=== PATIENT | female | born 1930 | race Caucasian/White ===

== ENCOUNTER 2017-02-25 12:25 | Emergency (ER) | payer MEDICARE ==
[~2017-02-25] VITALS: Ht 149.9 cm; Wt 69.9 kg
[~2017-02-25 12:25] MED LIST: BENADRYL 25MG C25 MG PO; DHEA PO; ELIMITE 5%60 GM/TUB1 TP; GOLYTELY 40004000 ML PO; LISINOPRIL2.5 MG NG; OMNIPRED 5 ML5 ML OP; TIMOPTIC OCUDO OP; VITAMIN D5000 IU PO; [UNRECOGNIZED DRUG - OTHER]
[2017-02-25 13:03] LABS: URINE BLOOD 3+ (NEG)
[2017-02-25 13:04] LABS: URINE BILIRUBIN - DIPSTICK NEGATIVE (NEG)
--- NOTE | 2017-02-25 13:16 | Emergency Room Report ---
History of Present Illness Time Seen by [id number] Presenting Problem in Triage Pt arrived:Walked Presenting Problem:ATE OUT THURSDAY, THURSDAY MORNING VOMITING . Onset of symptoms date/time:/ or onset unknown for:MEDICAL HX UNKNOWN Treatment Prior to Arrival: [employer] Provided by: Sepsis Risk Assessment: Temp: 98.7 B/P: MAP: Pulse: 80 Resp: 18 Recent fever? N Clinical Suspician of Infection? N Mental Status: 1 - Regular (Normal Baseline) Sepsis Risk:Low Sepsis Risk Have you (or family members/close friends) recently traveled outside the [place]? N If Yes, where/when: Have you had exposure to infectious disease within the past month? TB? Other? Specify: Patient has abdominal distention and vomiting for the past three days; ate cream donut three days ago and has been vomiting ever since; states " I can't eat". No blood from above or below; no hx diverticulitis; no diarrhea; no fever or urinary sx; no back pain. ALLERGIES Coded Allergies: NO KNOWN ALLERGIES (02/25/17) Home Medications Active Scripts Permethrin (Elimite 5% Cream; 60GM Tube) 60 GM TP ONCE #1 TUBE Ref 1 Prov: 03/21/16 HYDROXYZINE HCL (Hydroxyzine Hydrochloride) 1 POW NA Q4HP PRN itching #100 POW Prov: 03/21/16 PEG 3350/NA SULF,BICARB,CL/KCL (Golytely Solution) 4,000 ML PO ONCE #1 Prov: 06/09/12 Reported Medications Timolol Maleate (Timoptic Ocudose 0.2 Ml) 1 DROP OP BID MISCELLANEOUS (UNKNOWN MEDICATION) 1 DROP PO BID MISCELLANEOUS (UNKNOWN MEDICATION) 1 DROP OP QHS Dehydroepiandrosterone, Micr (Dhea) 5 MG PO QHS Cholecalciferol (Vitamin D) 5,000 IUNITS PO QHS History Medical History General Angina: No MT: No Hypertension? Yes Hyperlipidemia? Yes COPD? No Asthma? No Thyroid Problems? Yes CVA? No Seizures? No Diabetes? No GB Disease: No Glaucoma? Yes MRSA? No TB? No Cancer? 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 Social History Smoking Hx Smoker: Never Smoker Tobacco: No Type N/A Are you/the child exposed to second-hand smoke: No Alcohol Alcohol: No Review of Systems All Other Systems Reviewed and Negative Gastrointestinal see HPI Physical Exam Vital Signs Vital Signs Date Time Temp Pulse Resp B/P Pulse O2 O2 Flow FiO2 Ox Delivery Rate 02/25 1457 84 18 149/75 97 02/25 1349 82 18 137/83 97 02/25 1231 98.7 80 18 96 General Appearance normal appearance, WD/WN, no apparent distress Eye Exam - bilateral eye normal exam, bilateral eye PERRL, bilateral eye EOMI Neck normal inspection, non-tender, supple, full range of motion Respiratory Status Yes: trachea midline, chest symmetrical, non tender chest. No: respiratory distress, tender on palpation, use of accessory muscles, pain on inspiration, pain on expiration, productive cough, non productive cough. Lung Sounds bilateral: normal breath sounds, lungs clear. Cardiovascular normal exam, regular rate/rhythm, no peripheral edema, no gallop, no JVD, no murmur, no rub, normal peripheral pulses Gastrointestinal normal bowel sounds, soft, no organomegaly, no pulsatile mass, no guarding, no rebound, tenderness (diffusely tender no mrg) Extremities normal range of motion Neurologic alert, normal exam, no motor/sensory deficits, oriented x 3 Skin intact, normal color, warm/dry Medical Decision Making LABS/Meds/Orders Pt receiving controlled substance in ED? No Avinash was queried for this patient? No Results/Orders Laboratory Tests 02/25/17 1425: Sodium 138, Potassium 3.7, Chloride 104, Carbon Dioxide 30, BUN 10, Creatinine 0.7, Estimated Creat Clear 66, Estimated GFR (MDRD) 80, Glucose 125 H, Calcium 9.0, Total Bilirubin 0.5, AST 29, ALT 57, Alkaline Phosphatase 82, Total Protein 7.9, Albumin 3.2 L, Globulin 4.7 H, Albumin/Globulin Ratio 0.7 L, WBC 8.7, RBC 4.35, Hgb 13.4, Hct 41.6, MCV 95.7, RDW 14.1, Plt Count 247, MPV 7.7, Gran % 66.5, Gran # 5.8, Lymphocytes % 23.6, Monocytes % 7.6, Eosinophils % 1.7, Basophils % 0.6, Lymphocytes # 2.1, Monocytes # 0.7, Eosinophils # 0.2, Basophils # 0.1, PUBS MCHC 32.1, MCH 30.7 02/25/17 1247: Stl Cyclospora species NOT DETECTED, Stool Rotavirus (PCR) NOT DETECTED, Stool Campylobacter PCR DETECTED H, Stool Giardia Lamblia PCR NOT DETECTED, Stl Norovirus GI/GII PCR NOT DETECTED, Adenovirus (PCR) NOT DETECTED, C. difficile Tox (PCR) NOT DETECTED, E. coli (PCR) NOT DETECTED, Yersinia (PCR) NOT DETECTED, Urine Color OTHER, Urine Appearance TURBID, Urine pH 6.0, Ur Specific [place] >= 1.030, Urine Protein 2+ H, Urine Ketones TRACE H, Urine Blood 3+ H, Urine Nitrate POSITIVE H, Urine Bilirubin NEGATIVE, Urine Urobilinogen 2.0, Ur Leukocyte Esterase 2+ H, Urine RBC 5-10, Urine WBC 5-10, Ur Squamous Epith Cells 5-10, Urine Bacteria 4+, Urine Mucus 1+, Urine Glucose NEGATIVE Current Medication Orders Sig/Ahsan Start time Last Medication Dose Route Stop Time Status Admin Sodium Chloride 10 ML PRN PRN 02/25 1430 AC IV 02/26 1421 Orders Procedure Date/time Status DIET-NOTHING BY MOUTH 02/[address] ABD/PELVIS REQ 02/25 1421 Complete IV SALINE LOCK 02/25 1421 Active CBC WITH AUTO DIFF 02/25 1421 Complete CHEM 12 PROFILE 02/25 1421 Complete DIARRHEA PANEL, PCR 02/25 1301 Complete URINALYSIS/COMPLETE 02/25 1249 Complete CULTURE, URINE 02/25 1247 Active XRAY/CT/US XRAY/CT/US CT interpretation by reviewed by me Time results known: 1519 CT Results normal/NAD Departure Departure Time of Disposition 1519 Disposition DC Home or Self Care(routine) Clinical Impression Primary Impression: Campylobacter gastroenteritis Secondary Impressions: Abdominal cramps UTI (urinary tract infection) Qualifiers: Urinary tract infection type: acute cystitis Hematuria presence: without hematuria Qualified Code: N30.00 - Acute cystitis without hematuria Condition STABLE Patient Instructions DI for Food Poisoning Additional Instructions Rx Ciprofloxacin to cover diarrhea and UTI, see your family doctor in two to five days for follow up, clear liquids, advance as tolerated. This is an infection in your stool that will get much worse if you use Imodium; do NOT take Imodium for this illness. Discharge Counseling Counseled pt/family regarding diagnosis, test results, medications/RX, home care Prescriptions Current Visit Scripts Ciprofloxacin HCl (Cipro 500MG TAB) 500 MG PO BID #20 TAB Ondansetron (Zofran 4MG Odt) 4 MG PO Q6HP PRN NAUSEA AND VOMITING #6 ODT ED Critical Care Critical Care No at [id number]
[2017-02-25 14:35] LABS: HEMOGLOBIN 13.4 g/dL (12.2-16.2); LYMPH # 2.1 K/mm3 (0.7-4.5); LYMPH % 23.6 % (10-50.0)
[2017-02-25 14:51] LABS: AEROMONAS NOT DETECTED (NOT DETECTE); ASTROVIRUS NOT DETECTED (NOT DETECTE); CYCLOSPORA CAYETANENSIS NOT DETECTED (NOT DETECTE); E COLI O157 NOT DETECTED (NOT DETECTE); ENTEROAGGREGATIVE E COLI NOT DETECTED (NOT DETECTE); ENTEROPATHOGENIC E COLI NOT DETECTED (NOT DETECTE); ENTEROTOXIGENIC E COLI NOT DETECTED (NOT DETECTE); NOROVIRUS NOT DETECTED (NOT DETECTE); SAPOVIRUS NOT DETECTED (NOT DETECTE); SHIGA-LIKE TOXIN PROD. E COLI NOT DETECTED (NOT DETECTE); SHIGELLA/ENTEROINVASIVE E COLI NOT DETECTED (NOT DETECTE); VIBRIO CHOLERAE NOT DETECTED (NOT DETECTE)
[2017-02-25] MEDS ORDERED: CIPRO 500MG TA500 MG PO (15:13)
[2017-02-25] MEDS ORDERED: ZOFRAN ODT4 MG PO (15:13)
--- NOTE | 2017-02-25 15:17 | RADIOLOGY REPORT PS360 ---
CT ABD PELVIS W/O CONTRAST CLINICAL INDICATION: Abdominal pain with vomiting VOMITING ORDERING PHYSICIAN: Ambar Jarvis MD PATIENT AGE: 86 years COMPARISON: None TECHNIQUE: Axial images obtained with sagittal and coronal reformats. PROCEDURE: Oral Contrast: None IV Contrast: None . FINDINGS: The lung bases are clear. The liver, gallbladder, pancreas, and adrenal glands have an unremarkable unenhanced CT appearance. 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 There is a 3 cm cyst overlying the lower pole the right kidney and a 2 cm cyst overlying the mid aspect of the left kidney. No hydronephrosis or obstructing ureteral calculi. There is a infra umbilical abdominal wall hernia measuring 2.6 cm in width containing fat which is extruded into the anterior abdominal wall in the left paracentral region. Unremarkable appendix. There is diverticulosis without evidence of diverticulitis of the sigmoid:. There is moderate wedging of L1 anteriorly with loss of height anteriorly of greater than 50% probably old. IMPRESSION: 1. No acute intra-abdominal or pelvic pathology. 2. Bilateral renal cysts. 3. Infraumbilical abdominal wall hernia containing fat.
[2017-02-25 15:44] VITALS: BP 136/79
--- OUTSIDE RECORDS SUMMARY | 2017-03-03 06:13 | External Medical Summary Rpt ---
Demographics Preferred Language [place] Marital Status Unknown Judaism Affiliation Unknown Race Unknown Ethnic Group Unknown Author Author , Organization [employer] Address Unknown Phone Unavailable Purpose Continuity of Care Document - through 2016 Immunization No patient found.
--- OUTSIDE RECORDS SUMMARY | 2017-03-03 06:13 | External Medical Summary Rpt ---
Author Author [employer] Organization [employer] Address Unknown Phone Unavailable Purpose Continuity of Care Document - through 2016
--- OUTSIDE RECORDS SUMMARY | 2017-03-03 06:13 | External Medical Summary Rpt ---
Author Author [employer], [employer] Organization [employer] Address Unknown Phone Unavailable Results Comprehensive metabolic 2000 panel in Serum or Plasma Observa Value Referen Units Interpr Notes Date tion ce etation Range Albumin/G 1.1 - 1.8 No Low No February 25 lobulin informati informati 2016 2:25 [Mass on in on in PM ratio] in source source Serum or data data Plasma Albumin 3.4 - 5.0 gm/dL Low No February 25 [Mass/vol informati 2016 2:25 ume] in on in PM Serum or source Plasma data Alkaline 46 - 116 U/L Normal No February 25 phosphata informati 2016 2:25 se on in PM [Enzymati source c data activity/ volume] in Serum or Plasma Bilirubin 0.2 - 1.0 mg/dL Normal No February 25 .total informati 2016 2:25 [Mass/vol on in PM ume] in source Serum or data Plasma Urea 7 - 18 mg/dL Normal No February 25 nitrogen informati 2016 2:25 [Mass/vol on in PM ume] in source Serum or data Plasma Calcium 8.5 - mg/dL Normal No February 25 [Mass/vol 10.1 informati 2016 2:25 ume] in on in PM Serum or source Plasma data Chloride 98 - 107 mmoL/L Normal No February 25 [Moles/vo informati 2016 2:25 lume] in on in PM Serum or source Plasma data Carbon 21.0 - mmoL/L Normal No February 25 dioxide, 32.0 informati 2017 2:25 total on in PM [Moles/vo source lume] in data Serum or Plasma Creatinin 0.55 - mg/dL Normal No February 25 e 1.02 informati 2017 2:25 [Mass/vol on in PM ume] in source Serum or data Plasma Creatinin 50 - 200 ML/MIN Normal No February 25 e renal informati 2016 2:25 clearance on in PM source predicted data by Cockcroft -Gault formula Estimated 59- ML/MIN No REFERENCE February 25 informati RANGE: 2017 2:25 glomerula on in >60 PM r source ML/MIN/1. filtratio data 73 SQUARE n rate METERSIf (GF this patient is -A merican, then multiply theresult by 1.210. Globulin 1.3 - 3.2 gm/dL High No February 25 [Mass/vol informati 2016 2:25 ume] in on in PM Serum source data Glucose 74 - 106 mg/dL High No February 25 [Mass/vol informati 2016 2:25 ume] in on in PM Serum or source Plasma data Potassium 3.5 - 5.1 mmoL/L Normal No February 252016 2:25 [Moles/vo on in PM lume] in source Serum or data Plasma Sodium 136 - 145 mmoL/L Normal No February 25 [Moles/vo 2016 2:25 lume] in on in PM Serum or source Plasma data Aspartate 15 - 37 U/L Normal No February 252016 2:25 aminotran on in PM sferase source [Enzymati data c activity/ volume] in Serum or Plasma Alanine 12 - 78 U/L Normal No February 25 aminotran 2016 2:25 sferase on in PM [Enzymati source c data activity/ volume] in Serum or Plasma Protein 6.4 - 8.2 gm/dL Normal No February 25 [Mass/vol informati 2016 2:25 ume] in on in PM Serum or source Plasma data CBC W Auto Differential panel in Blood Observa Value Referen Units Interpr Notes Date tion ce etation Range Basophils 0 - 0.2 K/MM3 Normal No February 25 inform2016 2:25 [#/volume on in PM ] in source Blood by data Automated count Basophils 0.1 - 2.0 % Normal No February 25 informati 2016 2:25 leukocyte on in PM s in source Blood by data Automated count Eosinophi 0.0 - 0.4 K/mm3 Normal No February 25 ls informati 2016 2:25 [#/volume on in PM ] in source Blood by data Automated count Eosinophi 0.1 - % Normal No February 25 ls/100 12.0 informati 2016 2:25 leukocyte on in PM s in source Blood by data Automated count Granulocy 1.8 - 7.8 K/mm3 Normal No February 25 vivienne informati 2017 2:25 [#/volume on in PM ] in source Blood by data Automated count Granulocy 37.0 - % Normal No February 25 vivienne/100 80.0 informati 2016 2:25 leukocyte on in PM s in source Blood by data Automated count Hematocri 37.0 - % Normal No February 25 t [Volume 47.0 informati 2016 2:25 on in PM Fraction] source of Blood data Hemoglobi 12.2 - g/dL Normal No February 25 n 16.2 informati 2016 2:25 [Mass/vol on in PM ume] in source Blood data Lymphocyt 0.7 - 4.5 K/mm3 Normal No February 25 es informati 2016 2:25 [#/volume on in PM ] in source Unspecifi data ed specimen by Automated count Lymphocyt 10 - 50.0 % Normal No February 25 es informati 2016 2:25 [#/volume on in PM ] in source Unspecifi data ed specimen by Automated count Erythrocy 27 - 31.2 pg Normal No February 25 te mean informati 2016 2:25 corpuscul on in PM ar source hemoglobi data n [Entitic mass] Erythrocy 31.8 - g/dl Normal No February 25 te mean 35.4 informati 2016 2:25 corpuscul on in PM ar source hemoglobi data n concentra tion [Mass/vol ume] by Automated count Erythrocy 82.2 - fl Normal No February 25 te mean 97.8 informati 2016 2:25 corpuscul on in PM ar volume source [Entitic data volume] by Automated count Monocytes 0.1 - 1.0 K/mm3 Normal No February 25 informati 2016 2:25 [#/volume on in PM ] in source Blood by data Automated count Monocytes 1.7 - 9.3 % Normal No February 25 informati 2016 2:25 leukocyte on in PM s in source Blood by data Automated count Platelet 7.4 - fl Normal No February 25 mean 10.4 informati 2016 2:25 volume on in PM [Entitic source volume] data in Blood by Automated count Platelets 142 - 424 K/mm3 Normal No February 25 informati 2016 2:25 [#/volume on in PM ] in source Blood data Erythrocy 4.2 - 5.4 M/mm3 Normal No February 25 vivienne informati 2016 2:25 [#/volume on in PM ] in source Amniotic data fluid Erythrocy 11.5 - % Normal No February 25 te 17.5 ati 2016 2:25 distribut on in PM ion width source [Entitic data volume] by Automated count Leukocyte 4.8 - K/MM3 Normal No February 25 s 10.8 informati 2016 2:25 [#/volume on in PM ] in source Blood data DIARRHEA PANEL,PCR Observa Value Referen Units Interpr Notes Date tion ce etation Range Adenovi NOT NOT No No No February 25 karely DETECTE DETECTE informa informa informa 2016 40+41 D tion in tion in tion in 12:47 Ag source source source PM [Presen data data data ce] in Stool Aeromon NOT NOT No No No February 25 as DETECTE DETECTE informa informa informa 2016 salmoni D tion in tion in tion in 12:47 aydin source source source PM [Presen data data data ce] in Unspeci fied specime n Astrovi NOT NOT No No No February 25 karely DETECTE DETECTE informa informa informa 2016 [Presen D tion in tion in tion in 12:47 ce] in source source source PM Stool data data data by Electro n microsc opy Campylo DETECTE NOT No Abnorma No February 25 bacter D DETECTE informa l informa 2016 sp Ab tion in tion in 12:47 [Presen source source PM ce] in data data Serum Clostri NOT NOT No No No February 25 dium DETECTE DETECTE informa informa informa 2017 diffici D tion in tion in tion in 12:47 le source source source PM toxin data data data A+B [Presen ce] in Stool Cryptos NOT NOT No No No February 25 poridiu DETECTE DETECTE informa informa informa 2016 m sp Ag D tion in tion in tion in 12:47 source source source PM [Presen data data data ce] in Unspeci fied specime n Cyclosp NOT NOT No No No February 25 ora DETECTE DETECTE informa informa informa 2017 cayetan D tion in tion in tion in 12:47 melissa source source source PM [Presen data data data ce] in Unspeci fied specime n Escheri NOT NOT No No No February 25 mariam DETECTE DETECTE informa informa informa 2017 coli D tion in tion in tion in 12:47 [Presen source source source PM ce] in data data data Unspeci fied specime n by Culture FDA method Escheri NOT NOT No No No February 25 mariam DETECTE DETECTE informa informa informa 2017 coli D tion in tion in tion in 12:47 [Presen source source source PM ce] in data data data Unspeci fied specime n by Culture FDA method Escheri NOT NOT No No No February 25 mariam DETECTE DETECTE informa informa informa 2017 coli D tion in tion in tion in 12:47 Shiga-l source source source PM diya data data data toxin 1 assa Escheri NOT NOT No No No February 25 mariam DETECTE DETECTE informa informa informa 2017 coli D tion in tion in tion in 12:47 [id number] source source source PM data data data [Presen ce] in Stool by Organis m specifi c culture Entamoe NOT NOT No No No February 25 ba DETECTE DETECTE informa informa informa 2017 histoly D tion in tion in tion in 12:47 ruben source source source PM [Presen data data data ce] in Stool by Trichro me stain Giardia NOT NOT No No No February 25 DETECTE DETECTE informa informa informa 2017 lamblia D tion in tion in tion in 12:47 Ag source source source PM [Presen data data data ce] in Stool Norovir NOT NOT No No No February 25 us Ag DETECTE DETECTE informa informa informa 2016 [Presen D tion in tion in tion in 12:47 ce] in source source source PM Stool data data data Stool NOT NOT No No No February 25 Plesiom DETECTE DETECTE informa informa informa 2017 onas D tion in tion in tion in 12:47 shigell source source source PM oides data data data DNA detec Rotavir NOT NOT No No No February 25 us RNA DETECTE DETECTE informa informa informa 2017 detecti D tion in tion in tion in 12:47 on by source source source PM probe data data data and tar Salmone NOT NOT No No No February 25 lla sp DETECTE DETECTE informa informa informa 2017 DNA D tion in tion in tion in 12:47 [Identi source source source PM fier] data data data in Unspeci fied specime n by Probe & target amplifi cation method Caliciv NOT NOT No No No February 25 irus DETECTE DETECTE informa informa informa 2016 [Identi D tion in tion in tion in 12:47 fier] source source source PM in data data data Stool by Electro n microsc opy Escheri NOT NOT No No No February 25 mariam DETECTE DETECTE informa informa informa 2017 coli D tion in tion in tion in 12:47 [Presen source source source PM ce] in data data data Unspeci fied specime n by Culture FDA method Escheri NOT NOT No No No February 25 mariam DETECTE DETECTE informa informa informa 2017 coli D tion in tion in tion in 12:47 SXT source source source PM gene+H7 data data data gene [Identi fier] in Unspeci fied specime n by Probe & target amplifi cation method Vibrio NOT NOT No No No February 25 cholera DETECTE DETECTE informa informa informa 2017 e DNA D tion in tion in tion in 12:47 [Presen source source source PM ce] in data data data Unspeci fied specime n by Probe & target amplifi cation method Vibrio NOT NOT No No No February 25 sp DNA DETECTE DETECTE informa informa informa 2016 [Identi D tion in tion in tion in 12:47 fier] source source source PM in data data data Unspeci fied specime n by Probe & target amplifi cation method Vibrio NOT NOT No No No February 25 sp DETECTE DETECTE informa informa informa 2017 identif D tion in tion in tion in 12:47 ied in source source source PM Stool data data data by Organis m specifi c culture
--- OUTSIDE RECORDS SUMMARY | 2017-03-03 06:13 | External Medical Summary Rpt ---
Demographics Preferred Language [place]ib[place]ian Marital Status Unknown Faith Affiliation Unknown Race Unknown Ethnic Group Unknown Author Author , Organization [employer] Address Unknown Phone Unavailable Purpose Continuity of Care Document - through 2016 Immunization No patient found.
--- OUTSIDE RECORDS SUMMARY | 2017-03-03 06:13 | External Medical Summary Rpt ---
Author Author , Organization [employer] Address Unknown Phone Unavailable Purpose Continuity of Care Document - through 2016 Problems Code Diagnosis DOS Provider Status A04.5 CAMPYLOBACT ER ENTERITIS N39.0 URINARY TRACT INFECTION, SITE NOT SPECIFIED R10.9 UNSPECIFIED ABDOMINAL PAIN
--- OUTSIDE RECORDS SUMMARY | 2017-03-03 06:13 | External Medical Summary Rpt ---
Author Author [employer], [employer] Organization [employer] Address Unknown Phone Unavailable Results Comprehensive [...]
== END 2017-02-25 15:44 | disposition home or self-care (01) ==
LOC: ER 12:25
PROVIDERS: Emergency Medicine
DX: A04.5 Campylobacter enteritis (principal); N30.00 Acute cystitis without hematuria; I10 Essential (primary) hypertension